=== PATIENT | female | born 1990 | race African-American/Black ===

== ENCOUNTER 2020-04-16 12:22 | Emergency (ER) | payer MEDICAID, OTHER ==
[~2020-04-16] VITALS: Ht 180.3 cm; Wt 133.0 kg
[~2020-04-16 12:22] MED LIST: IBUP-2030 PO; OXYC5CAP12 PO
[2020-04-16] MEDS ORDERED: TRAMADOL 50MG TABLET PO ONE (13:15)
[2020-04-16 15:26] VITALS: BP 135/88
== END 2020-04-16 15:29 | disposition home or self-care (01) ==
LOC: ER 12:22
DX: S16.1XXA Strain of muscle, fascia and tendon at neck level, initial encounter (principal); V43.52XA Car driver injured in collision with other type car in traffic accident, initial encounter; Y93.89 Activity, other specified; Y92.488 Other paved roadways as the place of occurrence of the external cause
CPT/HCPCS: 99283

== ENCOUNTER 2022-02-02 03:10 | Emergency (ER) | payer MEDICAID, OTHER ==
[~2022-02-02] VITALS: Ht 180.3 cm; Wt 145.0 kg
[~2022-02-02 03:10] MED LIST changes: -OXYC5CAP12 PO; +OXYC5CAP19 PO
[2022-02-02 05:13] LABS: CLARITY URINE CLEAR (CLEAR); COLOR URINE YELLOW (YELLOW); KETONES URINE TRACE (NEGATIVE); LEUKOCYTE ESTERASE URINE TRACE (NEGATIVE); NITRITE URINE NEGATIVE (NEGATIVE); OCCULT BLOOD URINE NEGATIVE (NEGATIVE); PH URINE 6.5 (4.5-8.0); PROTEIN URINE NEGATIVE (NEGATIVE); SPECIFIC GRAVITY URINE 1.024 (1.005-1.030)
[2022-02-02] MEDS ORDERED: KETOROLAC 30MG/ML VIAL IV STA (05:55)
[2022-02-02] MEDS ORDERED: ONDANSETRON HCL 4MG/2ML INJ IV STA (05:55)
[2022-02-02] MEDS ORDERED: SODIUM CHLORIDE 0.9% 1,000 ML IV ONE (06:00)
[2022-02-02 06:31] LABS: HEMATOCRIT. 37.5 % (36.0-48.0); MEAN CORPUSCULAR HEMOGLOBIN 30.2 pg (28.0-32.0); MEAN CORPUSCULAR VOLUME 87.2 fL (81.0-99.0); MEAN PLATELET VOLUME 10.5 fl (7.4-10.4); PLATELET 219 x1000/uL (130-400); RED CELL DISTRIBUTION WIDTH 13.5 % (11.6-14.6)
[2022-02-02 06:45] LABS: CHLORIDE 105 mEq/L (98-107)
[2022-02-02 07:44] LABS: PLATELET ESTIMATE NORMAL
[2022-02-02] MEDS ORDERED: IBUP-2029 MT (09:14)
[2022-02-02] MEDS ORDERED: ONDA4TAB5 MT (09:14)
[2022-02-02 10:12] VITALS: BP 144/71
== END 2022-02-02 10:13 | disposition home or self-care (01) ==
LOC: ER 03:10
DX: B34.9 Viral infection, unspecified (principal); I10 Essential (primary) hypertension; Z98.890 Other specified postprocedural states
CPT/HCPCS: 36415; 70450; 71045; 80053; 81003; 83880; 84484; 85025; 87040; 87086; 87426; 93005; 96361; 96374; 96375; 99285; C9803; J1885; J2405; J7030

== ENCOUNTER 2022-02-04 10:18 | Emergency (ER) | payer MEDICAID ==
[~2022-02-04] VITALS: Ht 180.3 cm; Wt 150.0 kg
[~2022-02-04 10:18] MED LIST changes: +IBUP-2029 MT; +ONDA4TAB5 MT
[2022-02-04 10:53] VITALS: BP 154/104
[2022-02-04 11:44] LABS: BASOPHILS % 0.6 % (0.0-2.0); EOSINOPHILS % 1.2 % (0.0-5.0); HEMATOCRIT. 39.7 % (36.0-48.0); HEMOGLOBIN. 13.8 g/dL (12.0-16.0); MEAN CORPUSCULAR HEMOGLOBIN 30.4 pg (28.0-32.0); MEAN CORPUSCULAR VOLUME 87.6 fL (81.0-99.0); MONOCYTES % 14.9 % (2.0-8.0); NEUTROPHILS % 29.3 % (40.0-76.0); PLATELET 173 x1000/uL (130-400); RED BLOOD CELL COUNT 4.54 mill/uL (4.2-5.4); RED CELL DISTRIBUTION WIDTH 13.6 % (11.6-14.6)
[2022-02-04 11:59] LABS: CHLORIDE 111 mEq/L (98-107)
== END 2022-02-04 12:31 | disposition home or self-care (01) ==
LOC: ER 10:18
DX: J06.9 Acute upper respiratory infection, unspecified (principal); Z04.89 Encounter for examination and observation for other specified reasons; I10 Essential (primary) hypertension; Z98.890 Other specified postprocedural states
CPT/HCPCS: 36415; 80053; 81025; 85025; 99283

== ENCOUNTER 2024-01-23 08:39 | Emergency (ER) | payer MEDICAID ==
[~2024-01-23] VITALS: Ht 180.3 cm; Wt 147.0 kg
[2024-01-23 08:45] VITALS: O2SAT 100
[2024-01-23] MEDS: IBUPROFEN 400MG TABLET PO ONE (10:38)
[2024-01-23] MEDS: ACETAMINOPHEN 325MG TABLET PO ONE (10:38)
[2024-01-23] MEDS ORDERED: IBUP-2028 MT (12:11)
[2024-01-23] MEDS ORDERED: ACET-2708 MT (12:11)
[2024-01-23 12:24] VITALS: BP 144/80; PULSE 80; RESP 19; TEMP 98.2
== END 2024-01-23 12:25 | disposition home or self-care (01) ==
LOC: ER 09:19
DX: M25.572 Pain in left ankle and joints of left foot (principal); I10 Essential (primary) hypertension; Z98.890 Other specified postprocedural states
CPT/HCPCS: 73590; 73610; 73630; 29515; 99284; Z7610

== ENCOUNTER 2024-02-15 12:42 | Emergency (ER) | payer MEDICAID ==
[~2024-02-15] VITALS: Ht 177.8 cm; Wt 136.0 kg
[~2024-02-15 12:42] MED LIST changes: +ACET-2708 MT; +IBUP-2028 MT
[2024-02-15 12:47] VITALS: O2SAT 99
[2024-02-15] MEDS ORDERED: AMLODIPINE 5MG TABLET PO ONE (13:00)
[2024-02-15] MEDS ORDERED: ACETAMINOPHEN 325MG TABLET PO ONE (13:00)
[2024-02-15] MEDS ORDERED: P50 MT (15:46)
[2024-02-15] MEDS ORDERED: POLY15DR31 RIGHTEYE (15:46)
[2024-02-15] MEDS ORDERED: VALA100044 MT (15:46)
[2024-02-15] MEDS ORDERED: AMLO5TAB88 MT (15:46)
[2024-02-15 17:05] VITALS: BP 147/81; PULSE 80; RESP 16; TEMP 98.6
== END 2024-02-15 17:06 | disposition home or self-care (01) ==
LOC: ER 13:50
DX: G51.0 Bell's palsy (principal); I10 Essential (primary) hypertension; Z79.899 Other long term (current) drug therapy; Z98.890 Other specified postprocedural states
CPT/HCPCS: 99284